=== PATIENT | male | born 1965 | race Caucasian/White ===

== ENCOUNTER 2016-12-05 07:25 | Emergency (ER) | payer OTHER ==
--- NOTE | 2016-12-05 08:03 | ER Document Report ---
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 He became dizzy which he describes as spinning in the next thing he knew he woke up on the floor on his back, diaphoretic, and was unable to maintain balance walking, ataxic learning to the right. He has had some associated shortness of breath when he went back to the office and talk to the boss he was told that the symptoms could be due to the freon. Yesterday he continued to have vertigo and he also had vertigo again this morning but it is not as bad as it was on Thursday. He has a history of hypertension, diabetes type 2, hyperlipidemia and hypothyroidism. He has no headache or chest pain. TRAVEL OUTSIDE OF THE [place] IN LAST 30 DAYS: No - Related Data Allergies/Adverse Reactions: No Known Allergies Allergy (Verified 12/05/16 07:34) Past Medical History - General Information source: Patient - Social History Smoking Status: Unknown if Ever Smoked Frequency of alcohol use: None Drug Abuse: None Lives with: Family Family History: Arthritis, CAD, DM, Hyperlipidemia, Hypertension, Malignancy, Thyroid Disfunction Patient has suicidal ideation: No Patient has homicidal ideation: No - Past Medical History Cardiac Medical History: Reports: Hx Hypertension Renal/ Medical History: Denies: Hx Peritoneal Dialysis Surgical Hx: Negative - Immunizations Immunizations up to date: Yes Hx Diphtheria, Pertussis, Tetanus Vaccination: Yes - states up to date Review of Systems - Review of Systems Constitutional: No symptoms reported EENT: No symptoms reported Cardiovascular: No symptoms reported Respiratory: See HPI Gastrointestinal: No symptoms reported Genitourinary: No symptoms reported Male Genitourinary: No symptoms reported Musculoskeletal: No symptoms reported Skin: No symptoms reported Hematologic/Lymphatic: No symptoms reported Neurological/Psychological: See HPI Physical Exam - Vital signs Vitals: Temp Pulse Resp BP Pulse Ox 98.0 F 76 20 129/83 H 96 12/05/16 07:35 12/05/16 07:35 12/05/16 07:35 12/05/16 07:35 12/05/16 07:35 Interpretation: Normal - General General appearance: Appears well, Alert In distress: None - HEENT Head: Normocephalic, Atraumatic Eyes: Normal Conjunctiva: Normal Pupils: PERRL Mucous membranes: Normal Pharynx: Normal Neck: Supple. No: Lymphadenopathy, Thyromegally - Respiratory Respiratory status: No respiratory distress Chest status: Nontender Breath sounds: Normal Chest palpation: Normal - Cardiovascular Rhythm: Regular Heart sounds: Normal auscultation Murmur: No - Abdominal Inspection: Normal Distension: No distension Bowel sounds: Normal Tenderness: Nontender. No: Tender Organomegaly: No organomegaly - Back Back: Normal, Nontender - Extremities General upper extremity: Normal inspection, Nontender, Normal color, Normal ROM , Normal temperature General lower extremity: Normal inspection, Nontender, Normal color, Normal ROM , Normal temperature, Normal weight bearing. No: Talia's sign - Neurological Neuro grossly intact: Yes Cognition: Normal Orientation: AAOx4 [place] Coma Scale Eye Opening: Spontaneous Rafael Coma Scale Verbal: Oriented Rafael Coma Scale Motor: Obeys Commands Rafael Coma Scale Total: 15 Speech: Normal Motor strength normal: LUE, RUE, LLE, RLE Sensory: Normal - Psychological Associated symptoms: Normal affect, Normal mood - Skin Skin Temperature: Warm Skin Moisture: Dry Skin Color: Normal Skin irregularity: negative: Rash Course - Re-evaluation Re-evalutation: 12/05/16 08:31 12/05/16 10:59 356, 2 L of normal saline ordered, specific gravity of urine was 1.037, patient takes levothyroxine 100 mcg daily, atorvastatin 40 mg daily, metformin 1000 mg twice daily, glyburide micro 1.5 mg twice daily. Had him sit up at this time and he had very slight vertigo. 12/05/16 12:29 sat up after 2 liters, felt few seconds of lightheaded, no vertigo, stood with NO symptoms and walked a bit near bed. 12/05/16 14:32 dr. modesto gleason with pt going home to f/u with the [facility]. 12/07/16 22:23 - Vital Signs Vital signs: Temp Pulse Resp BP Pulse Ox 97.8 F 75 14 128/85 H 100 12/05/16 14:35 12/05/16 10:12 12/05/16 14:35 12/05/16 14:35 12/05/16 14:35 - Laboratory Result Diagrams: 12/05/16 08:40 12/05/16 08:40 Laboratory results interpreted by me: 12/05/16 12/05/16 12/05/16 08:40 08:55 11:42 Sodium 135.6 L Carbon Dioxide 19 L Glucose 356 H POC Glucose 253 H Creatine Kinase 48 L Urine Glucose (UA) >=500 H 12/05/16 12:45 Sodium Carbon Dioxide Glucose POC Glucose 199 H Creatine Kinase Urine Glucose (UA) Discharge - Discharge Clinical Impression: Uncontrolled diabetes, Dehydration, resolved vertigo Condition: Good Disposition: HOME, SELF-CARE Instructions: Vertigo ([facility]), Meclizine ([facility]), Dizziness ([facility]), Dehydration ([facility] ), Diabetes ([facility]) Additional Instructions: you need to drink enough water daily to keep your urine light in color see your primary care doctor for follow up to er if worse wach your accucheck's closely see neurologist if the vertigo recurs Please complete the patient satisfaction survey if you get one, and return it.. If you do not receive a survey, then you can go to the [facility] website, [email or web address] and place your comments about your very good care. Thank you very much. It was a pleasure being your medical provider today. Forms: Return to Work Referrals: VICTORIANO GOLDSTEIN MD [ACTIVE STAFF] - Follow up as needed
[2016-12-05] MEDS ORDERED: MECLIZINE HCL 25 MG TABLET PO ONE (08:23)
[2016-12-05] MEDS ORDERED: ASPIRIN 81 MG TABLET, CHEWABLE PO ONE (08:29)
[2016-12-05 09:18] LABS: ABSOLUTE EOSINOPHILS # (AUTO) 0.2 10^3/uL (0.0-0.6); ABSOLUTE LYMPHOCYTES (AUTO) 1.8 10^3/uL (0.5-4.7); ABSOLUTE MONOCYTES (AUTO) 0.4 10^3/uL (0.1-1.4); BASOPHILS % (AUTO) 0.5 % (0-2); EOSINOPHILS % (AUTO) 2.7 % (0-6); HEMATOCRIT 42.9 % (37.9-51.0); HEMOGLOBIN 14.5 g/dL (13.5-17.0); HGB HCT DIFFERENCE 0.6; LYMPHOCYTES % (AUTO) 28.8 % (13-45); MEAN CORPUSCULAR HEMOGLOBIN 30.3 pg (27.0-33.4); MEAN CORPUSCULAR HGB CONC 33.8 g/dL (32.0-36.0); MEAN CORPUSCULAR VOLUME 90 fl (80-97); MONOCYTES % (AUTO) 5.6 % (3-13); RED BLOOD COUNT 4.79 10^6/uL (4.35-5.55); RED CELL DISTRIBUTION WIDTH 13.5 % (11.5-14.0); SEGMENTED NEUTROPHILS % (AUTO) 62.4 % (42-78); WHITE BLOOD COUNT 6.4 10^3/uL (4.0-10.5)
[2016-12-05 09:19] LABS: APPEARANCE,URINE CLEAR; BILIRUBIN,URINE NEGATIVE (NEGATIVE); GLUCOSE, URINE >=500 mg/dL (NEGATIVE); KETONES,URINE NEGATIVE (NEGATIVE); LEUKOCYTE ESTERASE,URINE NEGATIVE (NEGATIVE); NITRITE,URINE NEGATIVE (NEGATIVE); PROTEIN,URINE NEGATIVE (NEGATIVE); URINE SPECIFIC GRAVITY 1.037; UROBILINOGEN,URINE NEGATIVE mg/dL (<2.0)
--- NOTE | 2016-12-05 09:26 | RADIOLOGY REPORT (SQ) ---
EXAM DESCRIPTION: CHEST SINGLE VIEW COMPLETED DATE/TIME: 12/05/2016 9:12 am REASON FOR STUDY: vertigo, syncope COMPARISON: August 2015 EXAM PARAMETERS: NUMBER OF VIEWS: One view. TECHNIQUE: Single frontal radiographic view of the chest acquired. RADIATION DOSE: NA LIMITATIONS: None. FINDINGS: LUNGS AND PLEURA: No opacities, masses or pneumothorax. No pleural effusion. MEDIASTINUM AND HILAR STRUCTURES: No masses. Contour normal. HEART AND VASCULAR STRUCTURES: Heart normal in size. Normal vasculature. BONES: No acute findings. HARDWARE: None in the chest. OTHER: No other significant finding. IMPRESSION: NO ACUTE RADIOGRAPHIC FINDING IN THE CHEST. TECHNICAL DOCUMENTATION: JOB ID: [id number]
[2016-12-05 09:42] LABS: ALANINE AMINOTRANSFERASE 32 U/L (21-72); ALBUMIN 3.9 g/dL (3.5-5.0); ALKALINE PHOSPHATASE 69 U/L (38-126); ANION GAP 15 (5-19); ASPARTATE AMINO TRANSFERASE 20 U/L (17-59); BILIRUBIN,DIRECT 0.3 mg/dL (0.0-0.4); BILIRUBIN,TOTAL 0.6 mg/dL (0.2-1.3); BLOOD UREA NITROGEN 8 mg/dL (7-20); CALCIUM 9.3 mg/dL (8.4-10.2); CARBON DIOXIDE 19 mmol/L (22-30); CHLORIDE 102 mmol/L (98-107); CREATINE KINASE 48 U/L (55-170); CREATININE RESULT 0.55 mg/dL (0.52-1.25); GLUCOSE 356 mg/dL (75-110); POTASSIUM 4.1 mmol/L (3.6-5.0); SODIUM 135.6 mmol/L (137-145); TOTAL PROTEIN 6.9 g/dL (6.3-8.2)
[2016-12-05] MEDS ORDERED: NORMAL SALINE 1000 ML 1,000 ML IV ONE ×2 (09:59→10:58)
[2016-12-05 10:01] LABS: CREATINE KINASE MB 0.78 ng/mL (<4.55)
[2016-12-05 10:02] LABS: TROPONIN I < 0.012 ng/mL
[2016-12-05 14:37] VITALS: BP 128/85
--- NOTE | 2016-12-05 17:48 | EKG REPORT ---
SEVERITY:- ABNORMAL ECG - SINUS RHYTHM VENTRICULAR PREMATURE COMPLEX LEFT ANTERIOR FASCICULAR BLOCK : Confirmed by: Peter Tovar 05-Dec-2016 17:48:14
== END 2016-12-05 14:45 | disposition home or self-care (01) ==
LOC: ER 07:25
DX: E86.0 Dehydration (principal); R42 Dizziness and giddiness; X58.XXXA Exposure to other specified factors, initial encounter; E11.9 Type 2 diabetes mellitus without complications; Y99.0 Civilian activity done for income or pay; E03.9 Hypothyroidism, unspecified; R53.1 Weakness; I10 Essential (primary) hypertension
CPT/HCPCS: 93005; 99284; 96360; 36415; 82553; 82962; 82550; 85025; 80053; 81001; 84484; 71010; 93010; J7030; 96361

== ENCOUNTER → 2017-06-28 | Emergency (ER) | payer OTHER ==
--- NOTE | 2017-06-29 09:19 | RADIOLOGY REPORT (SQ) ---
EXAM DESCRIPTION: CT FACIAL AREA WITHOUT COMPLETED DATE/TIME: 06/29/2017 12:07 am REASON FOR STUDY: INJURY COMPARISON: None. TECHNIQUE: Noncontrasted images through the facial bones and orbits windowed for bone and soft tissu e. Additional coronal and sagittal reconstructed images reviewed. All images stored on PACS. All CT scanners at this facility use dose modulation, iterative reconstruction, and/or weight based d osing when appropriate to reduce radiation dose to as low as reasonably achievable (ALARA). [facility]: Dose Right [facility]: CareDose [facility]: Dose Right [facility]: Teradose 4D [facility]: Smart Spiced Bits RADIATION DOSE: mGy. LIMITATIONS: None. FINDINGS: FACIAL BONES: No fracture or bone lesion. ORBITS: Intact. No fracture. Symmetric intact globes and retroorbital soft tissues. PARANASAL SINUSES: Clear. No significant mucosal thickening, mass or fluid. No nasal polyps. Maxill onofre sinus outlets are patent. SOFT TISSUES: No mass or edema. INFERIOR BRAIN: Limited view. No acute findings. OTHER: No other significant finding. IMPRESSION: NO ACUTE FINDINGS. TECHNICAL DOCUMENTATION: JOB ID: [id number] Quality ID # [id number]: Final reports with documentation of one or more dose reduction techniques (e.g., Au tomated exposure control, adjustment of the mA and/or kV according to patient size, use of iterative reconstruction technique) 2010 [employer]- All Rights Reserved
--- NOTE | 2017-06-29 09:20 | RADIOLOGY REPORT (SQ) ---
EXAM DESCRIPTION: CT HEAD WITHOUT COMPLETED DATE/TIME: 06/29/2017 12:07 am REASON FOR STUDY: INJURY COMPARISON: None accessible. TECHNIQUE: Axial images acquired through the brain without intravenous contrast. Images reviewed wi th bone, brain and subdural windows. Images stored on PACS. All CT scanners at this facility use dose modulation, iterative reconstruction, and/or weight based d osing when appropriate to reduce radiation dose to as low as reasonably achievable (ALARA). [facility]: Dose Right [facility]: CareDose [facility]: Dose Right [facility]: Teradose 4D [facility]: Yecuris RADIATION DOSE: mGy. LIMITATIONS: None. FINDINGS: VENTRICLES: Normal size and contour. CEREBRUM: No masses. No hemorrhage. No midline shift. No evidence for acute infarction. Normal gra y/white matter differentiation. No areas of low density in the white matter. CEREBELLUM: No masses. No hemorrhage. No alteration of density. No evidence for acute infarction. EXTRAAXIAL SPACES: No fluid collections. No masses. ORBITS AND GLOBE: No intra- or extraconal masses. Normal contour of globe without masses. CALVARIUM: No fracture. PARANASAL SINUSES: No fluid or mucosal thickening. SOFT TISSUES: No mass or hematoma. OTHER: No other significant finding. IMPRESSION: NORMAL BRAIN CT WITHOUT CONTRAST. EVIDENCE OF ACUTE STROKE: NO. COMMENT: Quality ID # [id number]: Final reports with documentation of one or more dose reduction techniques (e.g., Automated exposure control, adjustment of the mA and/or kV according to patient size, use of iterative reconstruction technique) TECHNICAL DOCUMENTATION: JOB ID: [id number] [employer]- All Rights Reserved
== END ==
LOC: ER 16:45
DX: S09.90XA Unspecified injury of head, initial encounter (principal); R68.84 Jaw pain; R51 Headache; R42 Dizziness and giddiness; E11.9 Type 2 diabetes mellitus without complications; W00.0XXA Fall on same level due to ice and snow, initial encounter
CPT/HCPCS: 70450; 70486; 99283

== ENCOUNTER 2018-03-29 07:50 | Emergency (ER) | payer OTHER ==
[2018-03-29] MEDS ORDERED: DIPH/PERTUSS(ACELL)/TETANUS VAC/PF 0.5 ML SYR (>=10YO) IM ONE (08:37)
--- NOTE | 2018-03-29 08:37 | ER Document Report ---
ED Extremity Problem, Lower - General Chief Complaint: Toe Injury Stated Complaint: FOOT LACERATION/PUNCTURE Time Seen by Provider: 03/29/18 08:23 Mode of Arrival: Ambulatory Information source: Patient TRAVEL OUTSIDE OF THE [place] IN LAST 30 DAYS: No - HPI Patient complains to provider of: Other - 52-year-old man with a history of type 2 diabetes as well as hyperthyroidism that presents for evaluation of redness around his right toe 2 days after having stepped on a piece of metal while on a worksite and having his foot scraped. He has been using peroxide twice daily to help clean the wound but noted it looked a little more red today and wanted to be looked at. He denies any fevers or chills, numbness or weakness, it has had some clear yellow drainage but no purulent drainage he is never had anything like this in the past. - Related Data Allergies/Adverse Reactions: No Known Allergies Allergy (Verified 03/29/18 07:56) Past Medical History - General Information source: Patient - Social History Smoking Status: Former Smoker Family History: Arthritis, CAD, DM, Hyperlipidemia, Hypertension, Malignancy, Thyroid Disfunction - Past Medical History Cardiac Medical History: Reports: Hx Hypertension Renal/ Medical History: Denies: Hx Peritoneal Dialysis - Immunizations Immunizations up to date: Yes Hx Diphtheria, Pertussis, Tetanus Vaccination: Yes - states up to date Review of Systems - Review of Systems -: Yes All other systems reviewed and negative Physical Exam - Vital signs Vitals: Temp Pulse Resp BP Pulse Ox 98.7 F 91 14 134/88 H 98 03/29/18 07:56 03/29/18 07:56 03/29/18 07:56 03/29/18 07:56 03/29/18 07:56 - General General appearance: Appears well In distress: None - HEENT Head: Normocephalic Eyes: Normal Conjunctiva: Normal Cornea: Normal Eyelashes: Normal Pupils: PERRL - Respiratory Respiratory status: No respiratory distress Chest status: Nontender Breath sounds: Normal Chest palpation: Normal - Cardiovascular Rhythm: Regular Heart sounds: Normal auscultation Murmur: No Friction rub: No Marge's crunch: No - Abdominal Inspection: Normal Distension: No distension Tenderness: Nontender - Back Back: Normal - Extremities General upper extremity: Normal inspection, Nontender, Normal ROM, Normal strength General lower extremity: Normal inspection, Nontender, Normal ROM Foot: Other - The right foot demonstrates a denuded plantar surface without any appreciable fluctuance, no purulence, there is a clean pink base with granulation tissue - Neurological Neuro grossly intact: Yes Cognition: Normal Orientation: AAOx4 Rafael Coma Scale Eye Opening: Spontaneous [place] Coma Scale Verbal: Oriented Rafael Coma Scale Motor: Obeys Commands [place] Coma Scale Total: 15 Speech: Normal Cranial nerves: Normal Motor strength normal: LUE, RUE, LLE, RLE Course - Re-evaluation Re-evalutation: 03/29/18 08:54 Patient with a abrasion to the skin of the right toe with small surrounding erythema. Base of this wound is very clean, there is no obvious purulence or fluctuance. There is normal range of motion of the foot strong DP pulse no obvious proximal stranding. Given that the patient has been doing a good job of dressing the wound he has no secondary signs of infection at this time believe that is likely safe for discharge. He will be given an antibiotic and a tetanus update, do not believe that he has underlying osteomyelitis, he has any necrotizing component or other injury. Will be discharged with return precautions. - Vital Signs Vital signs: Temp Pulse Resp BP Pulse Ox 98.7 F 91 14 134/88 H 98 03/29/18 07:56 03/29/18 07:56 03/29/18 07:56 03/29/18 07:56 03/29/18 07:56 Discharge - Discharge Clinical Impression: Injury of toe Qualifiers: Encounter type: initial encounter Laterality: right Qualified Code(s): S99.921A - Unspecified injury of right foot, initial encounter Cellulitis Qualifiers: Site of cellulitis: extremity Site of cellulitis of extremity: toe Laterality: right Qualified Code(s): L03.031 - Cellulitis of right toe Condition: Good Disposition: HOME, SELF-CARE Instructions: Cellulitis ([facility]) Additional Instructions: Your seen today for the wound on your right great toe. You were given a tetanus booster as well as an antibiotic. Continue to check your toe at least once per day, if it begins to drain pus, you begin to have fevers, or the redness moves past your ankle you should return to the emergency room. You should otherwise continue to dress and clean the wound as you have been. In case of any worsening return. Prescriptions: Cephalexin Monohydrate [Keflex 500 mg Capsule] 500 mg PO Q6H 7 Days #28 capsule
[2018-03-29 08:56] VITALS: BP 132/85
== END 2018-03-29 08:59 | disposition home or self-care (01) ==
LOC: ER 07:50
DX: S90.414A Abrasion, right lesser toe(s), initial encounter (principal); L03.031 Cellulitis of right toe; W22.8XXA Striking against or struck by other objects, initial encounter; Y99.0 Civilian activity done for income or pay; I10 Essential (primary) hypertension; Z87.891 Personal history of nicotine dependence; Z23 Encounter for immunization
CPT/HCPCS: 90471; 90715; 99283

== ENCOUNTER 2019-09-01 14:29 | Emergency (ER) | payer SELFPAY ==
[2019-09-01 14:37] VITALS: BP 127/80
--- NOTE | 2019-09-01 15:46 | ER Document Report ---
HPI - HPI Patient complains to provider of: wound to right cheek Time Seen by Provider: 09/01/19 15:36 Onset: Other - for 3 months Pain Level: 2 Associated Symptoms: None Exacerbated by: Denies Similar symptoms previously: Yes Past Medical History - General Information source: Patient - Social History Smoking Status: Current Every Day Smoker Frequency of alcohol use: None Drug Abuse: None Lives with: Alone Family History: Arthritis, CAD, DM, Hyperlipidemia, Hypertension, Malignancy, Thyroid Disfunction Patient has suicidal ideation: No Patient has homicidal ideation: No - Past Medical History Cardiac Medical History: Reports: Hx Hypertension Endocrine Medical History: Reports: Hx Diabetes Mellitus Type 2 Renal/ Medical History: Denies: Hx Peritoneal Dialysis - Immunizations Immunizations up to date: Yes Hx Diphtheria, Pertussis, Tetanus Vaccination: Yes - states up to date Vertical Provider Document - CONSTITUTIONAL Agree With Documented VS: Yes - INFECTION CONTROL TRAVEL OUTSIDE OF THE [place] IN LAST 30 DAYS: No - DERM Integumentary: Warm, Dry, Abscess Adult Front & Back Diagram: 1 - 3 cm open draining abscess Course - Vital Signs Vital signs: Temp Pulse Resp BP Pulse Ox 98.2 F 96 16 127/80 H 97 09/01/19 14:36 09/01/19 14:36 09/01/19 14:36 09/01/19 14:36 09/01/19 14:36 - Transfer of Care Notes: 09/01/19 15:44 This patient has a 3 cm open draining abscess this is wide open I can see down into the core approximately a centimeter deep there is truly nothing to I&D. Patient was advised to [facility] with [facility] within the next 2 to 3 da ys. If he is unable to do so he was advised to return here for reevaluation on Thursday as this wound has been in place for several months. Patient is also diabetic and has not taken his metformin in several months prescription will be provided here he was also advised to follow-up with [facility] to resolve that. Discharge - Discharge Clinical Impression: Abscess, Diabetes 1.5, managed as type 2 Condition: Fair Disposition: HOME, SELF-CARE Instructions: Abscess ([facility]), MRSA Cellulitis ([facility]), Soap Cleansing ([facility]), Trimethoprim-Sulfa ([facility]) Additional Instructions: Patient was advised to warm compresses to the affected area 4-5 times a day. Patient was advised to use a gentle soap and not use alcohol directly on the wound area. He was further advised to follow-up with [facility] in 3 to 4 days return here Thursday if he is unable to do so. Return sooner for any change or worsening condition. Prescriptions: Sulfamethoxazole/Trimethoprim [Bactrim Ds Tablet] 1 each PO 12 10 Days #20 tablet Metformin HCl 500 mg PO 12 #60 tablet Referrals: [facility] [Provider Group] - Follow up as needed
== END 2019-09-01 15:55 | disposition home or self-care (01) ==
LOC: ER 14:29
DX: L02.01 Cutaneous abscess of face (principal); E13.9 Other specified diabetes mellitus without complications; F17.200 Nicotine dependence, unspecified, uncomplicated
CPT/HCPCS: 99282

== ENCOUNTER 2019-10-21 14:25 | Emergency (ER) | payer SELFPAY ==
--- NOTE | 2019-10-21 15:35 | ER Document Report ---
HPI - HPI Time Seen by Provider: 10/21/19 15:11 Notes: Patient is a 54-year-old male presenting to the emergency department chief complaint of possible abscess to the right side of his face. Patient reports this has been present for approximately 1 year. Patient reports initially he had a puncture wound from a piece of metal, he states that he took the metal out and self treated with alcohol and hydrogen peroxide. He never sought any medical treatment until August when he came here to the emergency department. He states he was put on Bactrim and told to follow-up with his primary. Patient reports he has not been able to see his primary since then. Patient reports that the abscess continues to drain and the pain and redness is spreading. He denies any fevers. Past Medical History - General Information source: Patient - Social History Smoking Status: Never Smoker Frequency of alcohol use: None Drug Abuse: None Family History: Arthritis, CAD, DM, Hyperlipidemia, Hypertension, Malignancy, Thyroid Disfunction - Past Medical History Cardiac Medical History: Reports: Hx Hypercholesterolemia, Hx Hypertension Endocrine Medical History: Reports: Hx Diabetes Mellitus Type 2 Renal/ Medical History: Denies: Hx Peritoneal Dialysis - Immunizations Immunizations up to date: Yes Hx Diphtheria, Pertussis, Tetanus Vaccination: Yes - states up to date Vertical Provider Document - CONSTITUTIONAL Notes: PHYSICAL EXAMINATION: GENERAL: Well-appearing, well-nourished and in no acute distress. HEAD/face: Atraumatic, normocephalic. Ulceration noted to right side of face over the temporal area, circular in nature, measures approximately 2 cm in all directions. EYES: Pupils equal round extraocular movements intact, conjunctiva are normal. ENT: Nares patent NECK: Normal range of motion LUNGS: No respiratory distress Musculoskeletal: Normal range of motion NEUROLOGICAL: Normal speech, normal gait. PSYCH: Normal mood, normal affect. SKIN: Warm, Dry, normal turgor, no rashes or lesions noted. - INFECTION CONTROL TRAVEL OUTSIDE OF THE [place] IN LAST 30 DAYS: No Course - Re-evaluation Re-evalutation: Labs reviewed, unremarkable. CT facial area with contrast was obtained to ensure that there is no underlying abscess. Patient will be started on clindamycin, he is encouraged to follow-up with primary care, if they are unable to see him in integumentary did give patient phone numbers for multiple other primary care providers in the area who are accepting new patients. Patient verbalized understanding and agreement of this plan. Patient encouraged to stop using alcohol and hydrogen peroxide on the wound. Laboratory 10/21/19 10/21/19 16:00 16:00 WBC 7.0 RBC 4.80 Hgb 14.7 Hct 41.4 MCV 86 MCH 30.5 MCHC 35.5 RDW 13.5 Plt Count 216 Lymph % (Auto) 36.3 [place] % (Auto) 7.1 Eos % (Auto) 2.6 Baso % (Auto) 1.0 Absolute Neuts (auto) 3.7 Absolute Lymphs (auto) 2.6 Absolute Monos (auto) 0.5 Absolute Eos (auto) 0.2 Absolute Basos (auto) 0.1 Seg Neutrophils % 53.0 Sodium 133.6 L Potassium 3.8 Chloride 98 Carbon Dioxide 29 Anion Gap 7 BUN 8 Creatinine 0.52 Est GFR ( Amer) > 60 Est GFR (MDRD) Non-Af > 60 Glucose 319 H Calcium 9.9 Total Bilirubin 0.5 Direct Bilirubin 0.0 Neonat Total Bilirubin Not Reportable Neonat Direct Bilirubin Not Reportable Neonat Indirect Bili Not Reportable AST 21 ALT 19 Alkaline Phosphatase 68 Total Protein 7.0 Albumin [address] 10/21/19 15:34 IMPRESSION: 1. Large skin ulceration in the right lateral soft tissues anterior to the external auditory canal. No underlying osseous or muscle involvement. Differential includes chronic skin ulceration and skin cancer. No focal drainable abscess. - Vital Signs Vital signs: Temp Pulse Resp BP Pulse Ox 98.6 F 93 16 146/78 H 98 10/21/19 14:29 10/21/19 14:29 10/21/19 14:29 10/21/19 14:29 10/21/19 14:29 - Laboratory Result Diagrams: 10/21/19 16:00 10/21/19 16:00 Discharge - Discharge Clinical Impression: Skin abscess Qualifiers: Site of cutaneous abscess: face Qualified Code(s): L02.01 - Cutaneous abscess of face Condition: Stable Disposition: HOME, SELF-CARE Additional Instructions: Please take antibiotics as prescribed. If your primary care provider is unable to see you in a timely fashion i.e. in the next 5 to 7 days please make an ap pointment with a different primary care physician. I have given you a list of several names below. Please continue to keep a dressing on it while you are at work other than that please keep it open. Clean twice daily with soapy water. Return to the emergency department if you develop a fever or any worsening symptoms. Prescriptions: Clindamycin HCl 300 mg PO QID #40 capsule Referrals: [facility] [Primary Care Provider] - Follow up as needed HOA HBATTI MD [ACTIVE STAFF] - Follow up as needed PRESTON COLBERT MD [COMMUNITY BASED STAFF] - Follow up as needed DUNG BROWNE MD [NO LOCAL MD] - Follow up as needed
[2019-10-21 16:14] LABS: ABSOLUTE BASOPHILS # (AUTO) 0.1 10^3/uL (0.0-0.2); ABSOLUTE EOSINOPHILS # (AUTO) 0.2 10^3/uL (0.0-0.6); ABSOLUTE LYMPHOCYTES (AUTO) 2.6 10^3/uL (0.5-4.7); ABSOLUTE MONOCYTES (AUTO) 0.5 10^3/uL (0.1-1.4); ABSOLUTE NEUT (AUTO) 3.7 10^3/uL (1.7-8.2); EOSINOPHILS % (AUTO) 2.6 % (0-6); HEMATOCRIT 41.4 % (37.9-51.0); HEMOGLOBIN 14.7 g/dL (13.5-17.0); LYMPHOCYTES % (AUTO) 36.3 % (13-45); MEAN CORPUSCULAR HEMOGLOBIN 30.5 pg (27.0-33.4); MEAN CORPUSCULAR HGB CONC 35.5 g/dL (32.0-36.0); MEAN CORPUSCULAR VOLUME 86 fl (80-97); MONOCYTES % (AUTO) 7.1 % (3-13); PLATELET COUNT 216 10^3/uL (150-450); RED CELL DISTRIBUTION WIDTH 13.5 % (11.5-14.0); TOTAL CELLS COUNTED % (AUTO) 100 %
[2019-10-21 16:41] LABS: ALBUMIN 4.1 g/dL (3.5-5.0); ALKALINE PHOSPHATASE 68 U/L (38-126); ANION GAP 7 (5-19); ASPARTATE AMINO TRANSFERASE 21 U/L (17-59); BILIRUBIN,TOTAL 0.5 mg/dL (0.2-1.3); BLOOD UREA NITROGEN 8 mg/dL (7-20); CALCIUM 9.9 mg/dL (8.4-10.2); CARBON DIOXIDE 29 mmol/L (22-30); CHLORIDE 98 mmol/L (98-107); GLUCOSE 319 mg/dL (75-110); POTASSIUM 3.8 mmol/L (3.6-5.0)
--- NOTE | 2019-10-21 18:09 | RADIOLOGY REPORT (SQ) ---
EXAM DESCRIPTION: CT FACIAL AREA WITH IMAGES COMPLETED DATE/TIME: 10/21/2019 4:23 pm REASON FOR STUDY: eval for abscess. Right sided mandibular pain and swelling posterior to the ambika ble. COMPARISON: 06/28/2017. TECHNIQUE: Post contrast images through the facial bones and orbits windowed for bone and soft tissu e. Additional coronal and sagittal reconstructed images reviewed. All images stored on PACS. All CT scanners at this facility use dose modulation, iterative reconstruction, and/or weight based d osing when appropriate to reduce radiation dose to as low as reasonably achievable (ALARA). [facility]: Dose Right [facility]: CareDose [facility]: Dose Right [facility]: Teradose 4D [facility]: [employer] CONTRAST TYPE AND DOSE: contrast/concentration: Isovue 350.00 mg/ml; Total Contrast Delivered: 74.0 ml; Total Saline Delivered: 55.0 ml RENAL FUNCTION: GFR > 60. RADIATION DOSE: CT Rad equipment meets quality standard of care and radiation dose reduction techniq ues were employed. CTDIvol: 30.4 mGy. DLP: 570 mGy-cm. . LIMITATIONS: None. FINDINGS: FACIAL BONES: No fracture or bone lesion. ORBITS: Intact. No fracture. Symmetric intact globes and retroorbital soft tissues. PARANASAL SINUSES: Clear. No significant mucosal thickening, mass or fluid. No nasal polyps. Maxilla ry sinus outlets are patent. SOFT TISSUES: There is a large ulceration involving the right lateral cheek soft tissues measuring 2 by 1.4 cm x 1.2 cm in depth. Skin and soft tissues surrounding the ulceration is thickened measuring up to 1 cm in thickness. No focal drainable abscess. This is anterior to the external auditory can al, overlying the right zygomatic arch without involvement of the underlying bony earlier. This is s uperior to the right parotid gland. There is no parotid mass. INFERIOR BRAIN: Limited view. No acute findings. OTHER: No other significant finding. IMPRESSION: 1. Large skin ulceration in the right lateral soft tissues anterior to the external auditory canal. No underlying osseous or muscle involvement. Differential includes chronic skin ulceration and skin cancer. No focal drainable abscess. TECHNICAL DOCUMENTATION: JOB ID: [id number] Quality ID # [id number]: Final reports with documentation of one or more dose reduction techniques (e.g., Au tomated exposure control, adjustment of the mA and/or kV according to patient size, use of iterative reconstruction technique) 2010 [employer]- All Rights Reserved Reading location - IP/workstation name: [id number]
[2019-10-21] MEDS ORDERED: CLINDAMYCIN HCL 150 MG CAPSULE PO ONE (18:16)
[2019-10-21 18:47] VITALS: BP 136/87
== END 2019-10-21 18:45 | disposition home or self-care (01) ==
LOC: ER 14:25
DX: L02.01 Cutaneous abscess of face (principal); E11.622 Type 2 diabetes mellitus with other skin ulcer; L98.499 Non-pressure chronic ulcer of skin of other sites with unspecified severity; I10 Essential (primary) hypertension
CPT/HCPCS: 36415; 70487; 80053; 85025; 99283

== ENCOUNTER 2019-11-13 15:35 | Emergency (ER) | payer SELFPAY ==
[2019-11-13 15:41] VITALS: BP 137/86
--- NOTE | 2019-11-13 16:19 | ER Document Report ---
ED Medical Screen (RME) - General Chief Complaint: Abscess Stated Complaint: FACIAL ABCESS Time Seen by Provider: 11/13/19 16:00 [facility] - Follow up as needed Mode of Arrival: Ambulatory Information source: Patient Notes: 54-year-old male with history of diabetes presents to the emergency department with abscess wound to the right side of his face. Reports he has been here several times for this. He reports when we place him on antibiotics, the area will not be as swollen not as red. As soon as he finishes antibiotics it becomes inflamed again and starts draining. He denies fever vomiting diarrhea. Reports this started after he had a mole and a piece of metal stuck in his face and he dug it out. Reports is been there for over a year. Reports he does not have insurance. He reports he still taking the metformin that was prescribed to him over a year at the [facility]. When he runs out he takes his 's metformin. I have greeted and performed a rapid initial assessment of this patient. A comprehensive ED assessment and evaluation of the patient, analysis of test re sults and completion of the medical decision making process will be conducted by additional ED providers. TRAVEL OUTSIDE OF THE [place] IN LAST 30 DAYS: No - Related Data Allergies/Adverse Reactions: No Known Allergies Allergy (Verified 11/13/19 16:09) Past Medical History - Past Medical History Cardiac Medical History: Reports: Hx Hypercholesterolemia, Hx Hypertension Endocrine Medical History: Reports: Hx Diabetes Mellitus Type 2 Renal/ Medical History: Denies: Hx Peritoneal Dialysis - Immunizations Immunizations up to date: Yes Hx Diphtheria, Pertussis, Tetanus Vaccination: Yes - states up to date Physical Exam - Vital signs Vitals: Temp Pulse Resp BP Pulse Ox 98.9 F 95 16 137/86 H 95 11/13/19 15:40 11/13/19 15:40 11/13/19 15:40 11/13/19 15:40 11/13/19 15:40 Course - Vital Signs Vital signs: Temp Pulse Resp BP Pulse Ox 98.9 F 95 16 137/86 H 95 11/13/19 16:09 11/13/19 15:40 11/13/19 15:40 11/13/19 15:40 11/13/19 15:40 Doctor's Discharge - Discharge Referrals: [facility] [Primary [facility]] - Follow up as needed
[2019-11-13 16:58] LABS: ABSOLUTE BASOPHILS # (AUTO) 0.1 10^3/uL (0.0-0.2); ABSOLUTE EOSINOPHILS # (AUTO) 0.2 10^3/uL (0.0-0.6); ABSOLUTE LYMPHOCYTES (AUTO) 2.5 10^3/uL (0.5-4.7); ABSOLUTE MONOCYTES (AUTO) 0.4 10^3/uL (0.1-1.4); ABSOLUTE NEUT (AUTO) 3.1 10^3/uL (1.7-8.2); BASOPHILS % (AUTO) 0.9 % (0-2); EOSINOPHILS % (AUTO) 2.9 % (0-6); HEMATOCRIT 40.9 % (37.9-51.0); HEMOGLOBIN 14.7 g/dL (13.5-17.0); LYMPHOCYTES % (AUTO) 39.7 % (13-45); MEAN CORPUSCULAR HEMOGLOBIN 31.1 pg (27.0-33.4); MEAN CORPUSCULAR HGB CONC 35.9 g/dL (32.0-36.0); MEAN CORPUSCULAR VOLUME 86 fl (80-97); MONOCYTES % (AUTO) 6.4 % (3-13); PLATELET COUNT 214 10^3/uL (150-450); RED BLOOD COUNT 4.73 10^6/uL (4.35-5.55); RED CELL DISTRIBUTION WIDTH 13.6 % (11.5-14.0); SEGMENTED NEUTROPHILS % (AUTO) 50.1 % (42-78); TOTAL CELLS COUNTED % (AUTO) 100 %; WHITE BLOOD COUNT 6.2 10^3/uL (4.0-10.5)
[2019-11-13] MEDS ORDERED: CLINDAMYCIN HCL 150 MG CAPSULE PO ONE (17:01)
--- NOTE | 2019-11-13 17:13 | ER Document Report ---
Entered by FABIAN BORDEN SCRIBE 11/13/19 1966 Acting as scribe for:GISELE PEGUERO DO ED General - General Chief Complaint: Abscess Stated Complaint: FACIAL ABCESS Time Seen by Provider: 11/13/19 16:00 Primary Care Provider: [facility] EDGAR GUPTA [NO LOCAL MD] - Follow up as needed Mode of Arrival: Ambulatory Information source: Patient Notes: This 54 year old male patient presents to the emergency department today with pain from a lesion on the right side of his face. Patient states the lesion was caused from a sliver of metal that he removed himself x1.5 years ago. Patient states the piece of metal was stuck in a mole that he had and the mole was ripped off when he removed the metal. Patient states the lesion has not completely healed since. Patient states he visited the ED x2 months ago and x3 weeks ago for the lesion. Patient states he was given antibiotics from these visits, which have helped with the redness and drainage from the lesion. Patient states his antibiotic ran out x5 days ago and the lesion has become red and there is pain. TRAVEL OUTSIDE OF THE [place] IN LAST 30 DAYS: No - Related Data Allergies/Adverse Reactions: No Known Allergies Allergy (Verified 11/13/19 16:09) Past Medical History - General Information source: Patient - Social History Smoking Status: Former Smoker Cigarette use (# per day): No Lives with: Alone Family History: Arthritis, CAD, DM, Hyperlipidemia, Hypertension, Malignancy, Thyroid Disfunction Patient has homicidal ideation: No - Past Medical History Cardiac Medical History: Reports: Hx Hypercholesterolemia, Hx Hypertension Endocrine Medical History: Reports: Hx Diabetes Mellitus Type 2 - Immunizations Immunizations up to date: Yes Hx Diphtheria, Pertussis, Tetanus Vaccination: Yes - states up to date Review of Systems - Review of Systems Constitutional: No symptoms reported EENT: No symptoms reported Cardiovascular: No symptoms reported Respiratory: No symptoms reported Gastrointestinal: No symptoms reported Genitourinary: No symptoms reported Male Genitourinary: No symptoms reported Musculoskeletal: No symptoms reported Skin: See HPI, Lesions Hematologic/Lymphatic: No symptoms reported Neurological/Psychological: No symptoms reported -: Yes All other systems reviewed and negative Physical Exam - Vital signs Vitals: Temp Pulse Resp BP Pulse Ox 98.9 F 95 16 137/86 H 95 11/13/19 15:40 11/13/19 15:40 11/13/19 15:40 11/13/19 15:40 11/13/19 15:40 - General General appearance: Appears well, Alert - HEENT Eyes: Normal Pupils: PERRL Ears: Normal External canal: Normal Tympanic membrane: Normal Mouth/Lips: Other - Edentulous Pharynx: Normal Notes: Lesion of a 3.5 cm circumference on the anterior right side process. 1.5 cm ulcer inside of the lesion. Serous drainage. Erythema on the edges of the lesion. - Respiratory Respiratory status: No respiratory distress Chest status: Nontender Breath sounds: Normal Chest palpation: Normal - Cardiovascular Rhythm: Regular Heart sounds: Normal auscultation Murmur: No - Abdominal Inspection: Normal Distension: No distension Bowel sounds: Normal Tenderness: Nontender - Extremities General upper extremity: Normal inspection. No: Edema General lower extremity: Normal inspection. No: Edema - Neurological Neuro grossly intact: Yes Cognition: Normal Orientation: AAOx4 - Psychological Associated symptoms: Normal affect, Normal mood - Skin Skin Temperature: Warm Skin Moisture: Dry Skin Color: Normal Course - Vital Signs Vital signs: Temp Pulse Resp BP Pulse Ox 98.9 F 95 16 137/86 H 95 11/13/19 16:09 11/13/19 15:40 11/13/19 15:40 11/13/19 15:40 11/13/19 15:40 - Laboratory Result Diagrams: 11/13/19 16:35 11/13/19 16:35 Laboratory results interpreted by me: 11/13/19 11/13/19 16:22 16:35 Sodium 133.2 L Creatinine 0.50 L Glucose 343 H POC Glucose 336 H Discharge - Discharge Clinical Impression: Ulcer of skin of face Qualifiers: Non-pressure ulcer stage: with fat layer exposed Qualified Code(s): L98.492 - Non-pressure chronic ulcer of skin of other sites with fat layer exposed Diabetes Qualifiers: Diabetes mellitus type: type 2 Diabetes mellitus superintendent container terminal insulin use: without superintendent container terminal use Diabetes mellitus complication status: with skin complications Diabetes mellitus complication detail: with other skin ulcer Qualified Code(s): E11.622 - Type 2 diabetes mellitus with other skin ulcer Condition: Stable Disposition: HOME, SELF-CARE Instructions: Abscess ([facility]) Additional Instructions: Call Roxie Gomez in follow up. You need to see Dermatology. Please return here for increased pain or other concerns including fever, increased pain or oth er concerns. Keep the wound covered. Prescriptions: Clindamycin HCl 300 mg PO TID #30 capsule Forms: Return to Work Referrals: [facility] [NO LOCAL MD] - Follow up as needed I personally performed the services described in the documentation, reviewed and edited the documentation which was dictated to the scribe in my presence, and it accurately records my words and actions.
[2019-11-13 17:18] LABS: ALBUMIN 3.7 g/dL (3.5-5.0); ALKALINE PHOSPHATASE 70 U/L (38-126); ANION GAP 7 (5-19); ASPARTATE AMINO TRANSFERASE 18 U/L (17-59); BILIRUBIN,TOTAL 0.4 mg/dL (0.2-1.3); BLOOD UREA NITROGEN 8 mg/dL (7-20); CALCIUM 9.3 mg/dL (8.4-10.2); CARBON DIOXIDE 25 mmol/L (22-30); CHLORIDE 101 mmol/L (98-107); GLUCOSE 343 mg/dL (75-110); POTASSIUM 4.1 mmol/L (3.6-5.0); TOTAL PROTEIN 6.5 g/dL (6.3-8.2)
== END 2019-11-13 17:19 | disposition home or self-care (01) ==
LOC: ER 15:35
DX: E11.622 Type 2 diabetes mellitus with other skin ulcer (principal); L98.492 Non-pressure chronic ulcer of skin of other sites with fat layer exposed; Z87.891 Personal history of nicotine dependence; E11.9 Type 2 diabetes mellitus without complications; I10 Essential (primary) hypertension
CPT/HCPCS: 36415; 80053; 82962; 85025; 99283

== ENCOUNTER → 2020-07-03 | Outpatient (CLI) | payer OTHER, MEDICAID ==
--- NOTE | 2020-07-03 17:09 | RADIOLOGY REPORT (SQ) ---
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 TECHNIQUE: Blood glucose level was verified. Above dose of FDG was injected intravenously. 2-D seg mented attenuation correction images were obtained from the base of the skull to the midthighs. Nonc ontrast CT images were obtained for attenuation correction and fusion with emission images. CT image s were performed without oral or intravenous contrast and are not sensitive for parenchymal lesions. A series of overlapping emission PET images were obtained. [facility] by the radiologist. Images stored on PACS. LIMITATIONS: None. FINDINGS: HEAD AND NECK: Subtle asymmetrically increased activity is seen about the right ear and pr eauricular skin with SUV measuring on the order of 2.0, likely on the basis of post treatment changes . No additional areas of abnormal metabolic activity. CHEST: No areas of abnormal metabolic activity in the chest. ABDOMEN AND PELVIS: No areas of abnormal metabolic activity in the abdomen or pelvis. Expected physi ologic activity is present in the genitourinary system and bowel. PROXIMAL LOWER EXTREMITIES: No areas of abnormal metabolic activity in the soft tissues of the lower extremities. BONES: No abnormal metabolic activity in the visualized skeleton. ADDITIONAL CT FINDINGS: No acute abnormalities. OTHER: No other significant findings. IMPRESSION: Post treatment changes about the right ear and preauricular skin. No evidence of metast atic disease. TECHNICAL DOCUMENTATION: JOB ID: [id number] [employer]- All Rights Reserved Reading location - IP/workstation name: [email or web address]
== END ==
LOC: RAD 06-12 09:57
PROVIDERS: ATTEND Radiology Radiation Oncology
DX: C44.329 Squamous cell carcinoma of skin of other parts of face (principal)
CPT/HCPCS: 78815; A9552